=== PATIENT | female | born 1960 | race American Indian/Alaskan Native ===

== ENCOUNTER → 2017-11-29 10:45 | Outpatient (CLI) | payer OTHER, SELFPAY ==
[2017-11-29 12:30] LABS: Hemoglobin A1C% w Est Avg Glu 9.3 % (4.0-6.0)
[2017-11-29 12:44] LABS: Alanine Aminotransferase 43 IU/L (9-52); Albumin 4.1 g/dL (3.5-5.0); Albumin Globulin Ratio 1.1 (1.0-2.8); Alkaline Phosphatase 109 U/L (38-126); Aspartate Aminotransferase 30 IU/L (14-36); Bilirubin Total 0.6 mg/dL (0.2-1.3); Blood Urea Nitrogen 9 mg/dL (7-17); Calcium 9.8 mg/dL (8.4-10.2); Carbon Dioxide 24 mmol/L (22-32); Chloride 106 mmol/L (98-107); Cholesterol 131 mg/dL (140-199); Estimated Glomerular Filt Rate > 60.0 mL/min (>60); Globulin 3.6 g/dL (1.7-4.1); Glucose 149 mg/dL (70-100); HDL Cholesterol 44 mg/dL (40-60); HEMOLYSIS < 15 (0-50); LDL Cholesterol Calculated 57 mg/dL (<100); Potassium 4.9 mmol/L (3.4-5.1); Sodium 144 mmol/L (137-145); Total Protein 7.7 g/dL (6.3-8.2); Triglycerides 150 mg/dL (35-150)
== END ==
PROVIDERS: PCP Internal Medicine; Visit Provider Internal Medicine
DX: E11.9 Type 2 diabetes mellitus without complications (principal); I10 Essential (primary) hypertension; E78.5 Hyperlipidemia, unspecified
CPT/HCPCS: 36415; 80053; 80061; 83036

== ENCOUNTER → 2017-12-12 08:04 | Outpatient (CLI) | payer OTHER, SELFPAY ==
--- NOTE | 2017-12-12 | DI.MG.S_ITS ---
BILATERAL DIGITAL SCREENING MAMMOGRAM 3D/2D WITH CAD: 12/12/2017 CLINICAL: Routine screening. Comparison is made to exams dated: 11/13/2016 mammogram, 02/07/2015 mammogram, and 02/04/2014 mammogram - [facility]. There are scattered fibroglandular elements in both breasts. Current study was also evaluated with a Computer Aided Detection (CAD) system. No significant masses, calcifications, or other findings are seen in either breast. There has been no significant interval change. IMPRESSION: NEGATIVE There is no mammographic evidence of malignancy. A 1 year screening mammogram is recommended. This exam was interpreted at Station ID: [id number]. NOTE: For mammograms, a report in lay terms will be sent to the patient. Approximately 15% of breast malignancies will not be visualized mammographically. In the management of a palpable breast mass, a negative mammogram must not discourage biopsy of a clinically suspicious lesion. Electronically Signed By: Moiz fajardo/leesa:12/12/2017 11:42:44 letter sent: Normal Exam ACR BI-RADS Category 1: Negative 3341F
== END ==
PROVIDERS: PCP Internal Medicine; Visit Provider Internal Medicine
DX: Z12.31 Encounter for screening mammogram for malignant neoplasm of breast (principal)
CPT/HCPCS: 77063; 77067

== ENCOUNTER → 2019-02-10 13:23 | Outpatient (CLI) | payer OTHER, SELFPAY ==
[2019-02-10 14:21] LABS: Hemoglobin A1C% w Est Avg Glu 10.8 % (4.0-6.0)
[2019-02-10 14:44] LABS: Alanine Aminotransferase 31 IU/L (9-52); Albumin 4.2 g/dL (3.5-5.0); Albumin Globulin Ratio 1.2 (1.0-2.8); Alkaline Phosphatase 127 U/L (38-126); Aspartate Aminotransferase 30 IU/L (14-36); Bilirubin Total 0.5 mg/dL (0.2-1.3); Blood Urea Nitrogen 10 mg/dL (7-17); Calcium 9.8 mg/dL (8.4-10.2); Carbon Dioxide 22 mmol/L (22-32); Chloride 103 mmol/L (98-107); Estimated Glomerular Filt Rate > 60.0 mL/min (>60); Globulin 3.4 g/dL (1.7-4.1); Glucose 311 mg/dL (70-100); HEMOLYSIS 30 (0-50); Potassium 4.9 mmol/L (3.4-5.1); Sodium 137 mmol/L (137-145); Total Protein 7.6 g/dL (6.3-8.2)
[2019-02-10 14:48] LABS: Creatinine Urine Random 62.4 mg/dL
[2019-02-10 14:51] LABS: Microalbumi Creatinin Ratio Ur 68.9 ug/mg CR (<30); Microalbumin Urine Random 4.3 mg/dL (0-1.6)
[2019-02-10 15:29] LABS: Vitamin D 25 Hydroxy (D3) 36.7 ng/mL (30.0-100.0)
== END ==
PROVIDERS: Visit Provider Student in an Organized Health Care Education/Training Program
DX: E03.9 Hypothyroidism, unspecified (principal); E11.9 Type 2 diabetes mellitus without complications; I10 Essential (primary) hypertension; E55.9 Vitamin D deficiency, unspecified
CPT/HCPCS: 36415; 80053; 82043; 82306; 82570; 83036

== ENCOUNTER → 2019-03-05 08:27 | Outpatient (CLI) | payer OTHER, SELFPAY ==
--- NOTE | 2019-03-05 08:28 | DI.MG.S_ITS ---
BILATERAL DIGITAL SCREENING MAMMOGRAM 3D/2D WITH CAD: 03/05/2019 CLINICAL: Routine screening. Comparison is made to exams dated: 12/12/2017 mammogram, 11/13/2016 mammogram, and 02/07/2015 mammogram - [facility]. There are scattered fibroglandular elements in both breasts. Current study was also evaluated with a Computer Aided Detection (CAD) system. No significant masses, calcifications, or other findings are seen in either breast. There has been no significant interval change. IMPRESSION: NEGATIVE There is no mammographic evidence of malignancy. A 1 year screening mammogram is recommended. This exam was interpreted at Station ID: [id number]. NOTE: For mammograms, a report in lay terms will be sent to the patient. Approximately 15% of breast malignancies will not be visualized mammographically. In the management of a palpable breast mass, a negative mammogram must not discourage biopsy of a clinically suspicious lesion. Electronically Signed By: Sandie ortiz/leesa:03/05/2019 09:34:24 letter sent: Normal Exam ACR BI-RADS Category 1: Negative 3341F
== END ==
PROVIDERS: PCP Student in an Organized Health Care Education/Training Program; Visit Provider Student in an Organized Health Care Education/Training Program
DX: Z12.31 Encounter for screening mammogram for malignant neoplasm of breast (principal)
CPT/HCPCS: 77063; 77067

== ENCOUNTER → 2019-05-12 14:20 | Outpatient (CLI) | payer OTHER, SELFPAY ==
[2019-05-12 15:39] LABS: Hemoglobin A1C% w Est Avg Glu 10.6 % (4.0-6.0)
[2019-05-12 15:54] LABS: Creatinine Urine Random 17.7 mg/dL
[2019-05-12 15:59] LABS: Microalbumi Creatinin Ratio Ur 39.5 ug/mg CR (<30); Microalbumin Urine Random 0.7 mg/dL (0-1.6)
== END ==
PROVIDERS: PCP Student in an Organized Health Care Education/Training Program; Visit Provider Student in an Organized Health Care Education/Training Program
DX: E11.9 Type 2 diabetes mellitus without complications (principal)
CPT/HCPCS: 36415; 82043; 82570; 83036

== ENCOUNTER 2019-05-22 06:30 | Day surgery (SDC) | payer OTHER, SELFPAY ==
--- NOTE | 2019-05-22 | PATH_ITS ---
[facility] Accession Number: [id number] . 01 Material submitted: . PART A: colon - COLON POLYP @25 CM PART B: colon - COLON POLYP @15 CM PART C: rectum - RECTAL POLYP @5 CM X2 . 01 Clinical history: . SCREENING COLONOSCOPY . 02 Diagnosis: A. Colon, Polyp at 25 cm, Biopsy: Favor inflammatory polyp. Negative for dysplasia and malignancy. . B. Colon, Polyp at 15 cm, Biopsy: Inflammatory polyp. Negative for dysplasia and malignancy. . C. Rectum, Polyp at 5 cm x2, Biopsy: Tubular adenoma. Inflammatory polyp. MRV 05/25/2019 1021 Local . 02 Electronically signed: . Cynthia Coleman MD, Pathologist NPI- [id number] . 01 Gross description: . Part A: COLON POLYP @25 CM: Received in formalin is 1 fragment(s) of christianson, soft tissue measuring 0.7 x 0.5 x 0.2 cm which is inked, trisected and submitted entirely in 1 cassette(s) Part B: COLON POLYP @15 CM: Received in formalin is 1 fragment(s) of christianson, soft tissue measuring 0.3 x 0.2 x 0.2 cm submitted entirely in 1 cassette(s) Part C: RECTAL POLYP @5 CM X2: Received in formalin are multiple fragment(s) of christianson, soft tissue measuring 1.0 x 1.0 x 0.2 cm in aggregate submitted entirely in 1 cassette(s) /QBJ 05/22/20192057 Local . 02 Pathologist provided ICD-10: D12.8 . 02 CPT . 246697, 993675, 385621 Performed at: 01 [facility] [address], [place], [place] [id number] MD Oskar Cornell MD Phone: [phone] Performed at: [address] [id number] MD Cynthia Coleman MD Phone: [phone]
[2019-05-22 07:08] VITALS: BMI 27.3
[2019-05-22 07:12] VITALS: BP 142/79; PULSE 67; RESP 16; TEMP 36.4; O2SAT 99
[2019-05-22] MEDS: SODIUM CHLORIDE 0.9% 1,000 ML 200 ML IV (07:20)
--- NOTE | 2019-05-22 07:41 | PM.HP.1 ---
History of Present Illness History of Present Illness Date Patient Seen: 05/22/19 Time Patient Seen: 07:41 Chief complaint: [id number] SCREENING COLONOSCOPY Narrative: This is a 58-year-old woman with history of diabetes controlled on medication and hypothyroid, who is here for her 1st screening colonoscopy. She denies any history of melena, hematochezia or family history of colon polyps or colon cancers. ROS: Thirteen system review is negative other than as mentioned below and in HPI. PE: GENERAL: Well groomed and cooperative. Appears stated age. Answers questions promptly and appropriately. Vital signs noted. HENT: Normocephalic, atraumatic. Hearing intact. Oral mucosa is pink and moist. EYES: Conjunctiva pink, sclera white, no periorbital swelling. CARDIOVASCULAR: Regular rate. No pedal edema. RESPIRATORY: Non tachypneic, breathing comfortably on room air. GASTROINTESTINAL: Abdomen soft and non-distended GENITALURINARY: No flank tenderness. MUSCULOSKELETAL: Equal tone and mass bilaterally. SKIN: Warm, dry, soft, appropriate color for ethnicity. No other lesions, rashes, or wounds. NEURO: Alert and Oriented X 3. No gross sensory deficits, or cognitive issues. PSYCH: Appropriate affect and mood. Patient History Medical History Abnormal Pap smear of cervix (Resolved 1987) Acne (Chronic) Umanzor's palsy (Resolved 2000) History of one miscarriage (Resolved 1982) HPV (human papilloma virus) infection (Resolved 1987) Hyperlipidemia (Chronic 2010) Thyroid nodule (Resolved 1989) Surgical History Anesthesia (Resolved) History of bilateral tubal ligation (Resolved 1996) History of cervical biopsy (Resolved 1987) History of colposcopy (Resolved 1989) History of D&C (Resolved 1982) History of thyroid surgery (Resolved 1989) Status post colonoscopy Status post dilation and curettage (Inactive) Status post thyroid surgery (Inactive) Status post tubal ligation (Inactive) Family & Social History Family History Father Alcoholism Coronary artery disease Sister Age: 55 Type 1 diabetes Grandfather TB (tuberculosis) Mother Age: 78 Macular degeneration Diverticulosis History of kidney cancer History of nephrectomy Grandmother Heart disease Stroke Sister Diabetes mellitus Grandmother No problems noted. Social History: household members spouse Tobacco & Substance use: Smoking Status Current every day smoker alcohol intake never Meds Home Medications and Allergies Home Medications Medication Instructions Recorded Confirmed Type cholecalciferol (vitamin D3) 1,000 unit PO DAILY #0 01/02/12 05/22/19 History [Vitamin D3] ascorbic acid (vitamin C) 500 mg PO QDAY #0 09/27/17 05/22/19 History Test Strips- Glucocard #100 each 12/19/18 05/12/19 Rx aspirin 81 mg tablet,delayed 81 mg PO DAILY 02/10/19 05/22/19 History release levothyroxine 112 mcg tablet 112 mcg PO QDAY #90 tab 03/23/19 05/22/19 Rx metformin 1,000 mg tablet 1,000 mg PO BIDCC #180 tab 03/23/19 05/22/19 Rx atorvastatin 40 mg tablet 40 mg PO HS #90 tab 04/02/19 05/22/19 Rx losartan 100 mg tablet 100 mg PO QDAY #90 tab 05/12/19 05/22/19 Rx insulin aspart sliding scale #1 ea 05/15/19 Rx empagliflozin 10 mg PO DAILY 05/22/19 05/22/19 History glipizide 10 mg PO BID 05/22/19 05/22/19 History Allergies Allergy/AdvReac Type Severity Reaction Status Date / Time Penicillins Allergy Severe ANAPHYLAXIS Verified 05/22/19 07:03 Exam Vital Signs (past 8 hours): - 05/22/19 07:12 Temperature 97.5 F L Pulse Rate 67 Respiratory Rate 16 Blood Pressure 142/79 H Pulse Oximetry 99 Oxygen Delivery Method Room Air Assessment & Plan Assessment and plan (1) At average risk for colon cancer: Current visit: Yes Status: Acute (2) Colon cancer screening: Current visit: Yes Status: Acute (3) Essential hypertension, benign: Current visit: No Status: Acute (4) Type 2 diabetes mellitus: Current visit: No Status: Chronic (5) Current smoker: Current visit: No Status: None Assessment & Plan narrative: Risk and benefit of screening colonoscopy and possible polypectomy were discussed with the patient who desires to proceed with her colonoscopy procedure. Risk of bleeding, perforation, need for additional procedures were discussed. Time Spent With Patient Time with patient: 15-24 minutes Quality VTE Deep Vein Thrombosis/Pulmonary Embolism Present on Admission: No
--- NOTE | 2019-05-22 08:25 | PM.OP.ENDO ---
Operative Date/Time/Diagnoses Date of procedure: 05/22/19 Time of procedure: 08:25 Pre-op diagnosis: Average risk for colon cancer Post-op diagnosis: other (Multiple polyps, diverticulosis) Procedure & Clinicians Study performed: Colonoscopy, polypectomy x4 with hot snare and cold forceps Same procedure as scheduled: Yes Indications: Patient here for 1st screening colonoscopy Surgeon: Estella Barnett Procedure Notes SCOAP/Timeout: Performed Procedure in detail: The patient was brought to the room and placed in left lateral decubitus position with all bony prominences padded. A time-out was performed and then the patient was given procedural sedation starting with 3 mg of Versed and 100 mcg of fentanyl. An additional 50 micro g of fentanyl were given during the procedure. Vitals were monitored throughout the procedure and remained stable. Once adequately sedated the procedure was begun. A rectal exam was performed revealing no abnormalities. The colonoscope was then introduced to the rectum and advanced to the cecum in the usual fashion. The cecum was identified by the appendiceal orifice, the mucosal try fold, and the intubation of the ileocecal valve. The scope was then retracted while rotating side to side and examining each mucosal fold. For polyps were found and completely removed. A 1 cm pedunculated polyp at 25 cm in the rectosigmoid colon was removed with hot snare, a small flat polyp at 15 cm was removed with cold forceps, into 1-2 cm rectal polyps were removed with hot snare at 5 cm just above the anal verge. Moderate diverticular were seen throughout the descending and sigmoid colon. No signs of active diverticulitis At the conclusion procedure retroflexion was performed and small grade 1-2 internal hemorrhoids without stigmata of bleeding were seen. The scope was then withdrawn from the rectum the procedure was concluded. The patient tolerated the procedure well was transferred to the PACU in stable condition. Scope withdrawal time: 20 Sedation minutes: 29 Findings: diverticulosis and polyp Specimen(s): other (4 polyps) Complications: none Impression: Multiple medium to large-sized polyps Post-procedure Recommendations: Colonscopy in 1 year (Depending on pathology results) Disposition: PACU
[2019-05-22] MEDS: MIDAZOLAM 5 MG/5 ML VIAL IV (08:26)
[2019-05-22] MEDS: fentaNYL 250 MCG/5 ML INJ IV (08:27)
[2019-05-22 08:30] VITALS: BP 110/67; PULSE 72; RESP 16; TEMP 37.2; O2SAT 99
[2019-05-22 08:34] VITALS: BP 118/64; PULSE 65; RESP 16; O2SAT 97
[2019-05-22 08:38] VITALS: BP 127/69; PULSE 67; RESP 16; O2SAT 99
[2019-05-22 08:44] VITALS: BP 142/81; PULSE 69; RESP 11; TEMP 36.4; O2SAT 99
[2019-05-22 08:54] VITALS: BP 137/77; PULSE 68; RESP 15; TEMP 36.3; O2SAT 97
== END 2019-05-22 09:24 | disposition home or self-care (01) ==
PROVIDERS: PCP Student in an Organized Health Care Education/Training Program; Visit Provider Surgery
PROC: 0DJD8ZZ Inspection of Lower Intestinal Tract, Via Natural or Artificial Opening Endoscopic (ICD-10-PCS; CPT 45378; principal; 2019-05-22 07:45)
DX: Z12.11 Encounter for screening for malignant neoplasm of colon (principal); I10 Essential (primary) hypertension; E11.9 Type 2 diabetes mellitus without complications; Z79.4 Long term (current) use of insulin; F17.200 Nicotine dependence, unspecified, uncomplicated; E03.9 Hypothyroidism, unspecified; K57.30 Diverticulosis of large intestine without perforation or abscess without bleeding; D12.8 Benign neoplasm of rectum
CPT/HCPCS: 45385; 45380; 99152; 99153; J2250; J3010

== ENCOUNTER → 2019-08-14 11:46 | Outpatient (CLI) | payer OTHER, SELFPAY ==
[2019-08-14 12:50] LABS: Hemoglobin A1C% w Est Avg Glu 9.7 % (4.0-6.0)
== END ==
PROVIDERS: PCP Student in an Organized Health Care Education/Training Program; Referring Provider Student in an Organized Health Care Education/Training Program; Visit Provider Student in an Organized Health Care Education/Training Program
DX: E11.9 Type 2 diabetes mellitus without complications (principal)
CPT/HCPCS: 36415; 83036

== ENCOUNTER → 2019-11-19 14:05 | Outpatient (CLI) | payer OTHER, SELFPAY ==
[2019-11-19 14:42] LABS: Hemoglobin A1C% w Est Avg Glu 9.4 % (4.0-6.0)
== END ==
PROVIDERS: PCP Student in an Organized Health Care Education/Training Program; Referring Provider Student in an Organized Health Care Education/Training Program; Visit Provider Student in an Organized Health Care Education/Training Program
DX: E11.9 Type 2 diabetes mellitus without complications (principal)
CPT/HCPCS: 36415; 83036

== ENCOUNTER → 2020-03-01 10:46 | Outpatient (CLI) | payer OTHER, SELFPAY ==
[2020-03-01 11:58] LABS: Hemoglobin A1C% w Est Avg Glu 8.7 % (4.0-6.0)
[2020-03-01 12:05] LABS: Creatinine Urine Random 114.7 mg/dL
[2020-03-01 12:10] LABS: Alanine Aminotransferase 30 IU/L (<35); Albumin 4.2 g/dL (3.5-5.0); Albumin Globulin Ratio 1.3 (1.0-2.8); Alkaline Phosphatase 120 U/L (38-126); Aspartate Aminotransferase 25 IU/L (14-36); BUN Creatinine Ratio 24.1 (6-22); Bilirubin Total 0.5 mg/dL (0.2-1.3); Blood Urea Nitrogen 13 mg/dL (7-17); Calcium 10.1 mg/dL (8.4-10.2); Carbon Dioxide 25 mmol/L (22-32); Chloride 107 mmol/L (98-107); Estimated Glomerular Filt Rate > 60.0 mL/min (>60); Globulin 3.3 g/dL (1.7-4.1); Glucose 126 mg/dL (80-110); HEMOLYSIS < 15 (0-50); Microalbumin Urine Random 3.1 mg/dL (0-1.6); Potassium 5.1 mmol/L (3.4-5.1); Sodium 142 mmol/L (137-145); Total Protein 7.5 g/dL (6.3-8.2)
== END ==
PROVIDERS: PCP Student in an Organized Health Care Education/Training Program; Referring Provider Student in an Organized Health Care Education/Training Program; Visit Provider Student in an Organized Health Care Education/Training Program
DX: E11.29 Type 2 diabetes mellitus with other diabetic kidney complication (principal); E11.9 Type 2 diabetes mellitus without complications; E78.5 Hyperlipidemia, unspecified; I10 Essential (primary) hypertension; R80.9 Proteinuria, unspecified
CPT/HCPCS: 36415; 80053; 82043; 82570; 83036

== ENCOUNTER → 2020-04-12 17:24 | Outpatient (CLI) | payer OTHER, SELFPAY ==
--- NOTE | 2020-04-12 | DI.MG.S_ITS ---
BILATERAL DIGITAL SCREENING MAMMOGRAM 3D/2D WITH CAD: 04/12/2020 CLINICAL: Routine screening. Comparison is made to exams dated: 03/05/2019 mammogram, 12/12/2017 mammogram, 11/13/2016 mammogram, 02/07/2015 mammogram, and 02/04/2014 mammogram - [facility]. There are scattered fibroglandular elements in both breasts. Current study was also evaluated with a Computer Aided Detection (CAD) system. No significant masses, calcifications, or other findings are seen in either breast. There has been no significant interval change. IMPRESSION: NEGATIVE There is no mammographic evidence of malignancy. A 1 year screening mammogram is recommended. This exam was interpreted at Station ID: [id number]. NOTE: For mammograms, a report in lay terms will be sent to the patient. Approximately 15% of breast malignancies will not be visualized mammographically. In the management of a palpable breast mass, a negative mammogram must not discourage biopsy of a clinically suspicious lesion. Electronically Signed By: Didier celeste/leesa:04/13/2020 08:24:04 letter sent: Normal Exam ACR BI-RADS Category 1: Negative 3341F
== END ==
PROVIDERS: PCP Student in an Organized Health Care Education/Training Program; Referring Provider Student in an Organized Health Care Education/Training Program; Visit Provider Student in an Organized Health Care Education/Training Program
DX: Z12.31 Encounter for screening mammogram for malignant neoplasm of breast (principal)
CPT/HCPCS: 77063; 77067

== ENCOUNTER → 2020-06-15 11:11 | Outpatient (CLI) | payer OTHER, SELFPAY ==
[2020-06-15 12:22] LABS: Hemoglobin A1C% w Est Avg Glu 8.3 % (4.0-6.0)
== END ==
PROVIDERS: PCP Student in an Organized Health Care Education/Training Program; Referring Provider Student in an Organized Health Care Education/Training Program; Visit Provider Student in an Organized Health Care Education/Training Program
DX: E11.9 Type 2 diabetes mellitus without complications (principal)
CPT/HCPCS: 36415; 83036

== ENCOUNTER → 2021-04-27 11:31 | Outpatient (CLI) | payer OTHER, SELFPAY ==
[2021-04-27 12:20] LABS: Hemoglobin A1C% w Est Avg Glu 8.2 % (4.0-6.0)
[2021-04-27 12:44] LABS: BUN Creatinine Ratio 22.6 (6-22); Blood Urea Nitrogen 14 mg/dL (7-17); Calcium 10.2 mg/dL (8.4-10.2); Carbon Dioxide 23 mmol/L (22-32); Chloride 107 mmol/L (98-107); Cholesterol 149 mg/dL (140-199); Estimated Glomerular Filt Rate > 60.0 mL/min (>60); Glucose 95 mg/dL (80-110); HDL Cholesterol 56 mg/dL (40-60); HEMOLYSIS < 15 (0-50); LDL Cholesterol Calculated 48 mg/dL (<100); Potassium 4.6 mmol/L (3.4-5.1); Sodium 140 mmol/L (137-145); Triglycerides 226 mg/dL (35-150)
[2021-04-27 17:13] LABS: Microalbumin Urine Random 2.7 mg/dL (0-1.6)
[2021-04-27 17:16] LABS: Creatinine Urine Random 112.1 mg/dL
== END ==
PROVIDERS: PCP Student in an Organized Health Care Education/Training Program; Referring Provider Student in an Organized Health Care Education/Training Program; Visit Provider Student in an Organized Health Care Education/Training Program
DX: E11.9 Type 2 diabetes mellitus without complications (principal); I10 Essential (primary) hypertension; E78.5 Hyperlipidemia, unspecified; E03.9 Hypothyroidism, unspecified
CPT/HCPCS: 36415; 80048; 80061; 82043; 82570; 83036; 84443

== ENCOUNTER → 2021-05-30 16:19 | Outpatient (CLI) | payer OTHER, SELFPAY ==
--- NOTE | 2021-05-30 16:21 | DI.MG.S_ITS ---
BILATERAL DIGITAL SCREENING MAMMOGRAM 3D/2D WITH CAD: 05/30/2021 CLINICAL: Routine screening. Family history of breast cancer. Comparison is made to exams dated: 04/12/2020 mammogram, 03/05/2019 mammogram, and 12/12/2017 mammogram - [facility]. There are scattered fibroglandular elements in both breasts. Current study was also evaluated with a Computer Aided Detection (CAD) system. There is an oval low density focal asymmetry with an indistinct and circumscribed margin in the right breast middle depth central to the nipple seen on the craniocaudal view only. No other significant masses, calcifications, or other findings are seen in either breast. IMPRESSION: INCOMPLETE: NEEDS ADDITIONAL IMAGING EVALUATION The oval low density focal asymmetry in the right breast is indeterminate. Mediolateral and spot compression views as well as additional views with possible ultrasound are recommended. This exam was interpreted at Station ID: [id number]. NOTE: For mammograms, a report in lay terms will be sent to the patient. Approximately 15% of breast malignancies will not be visualized mammographically. In the management of a palpable breast mass, a negative mammogram must not discourage biopsy of a clinically suspicious lesion. Electronically Signed By: Oskar power/leesa:05/30/2021 16:58:25 letter sent: Additional Imaging Needed ACR BI-RADS Category 0: Incomplete 3340F
== END ==
PROVIDERS: PCP Student in an Organized Health Care Education/Training Program; Referring Provider Student in an Organized Health Care Education/Training Program; Visit Provider Student in an Organized Health Care Education/Training Program
DX: Z12.31 Encounter for screening mammogram for malignant neoplasm of breast (principal); Z80.3 Family history of malignant neoplasm of breast
CPT/HCPCS: 77063; 77067

== ENCOUNTER → 2021-06-26 14:46 | Outpatient (CLI) | payer OTHER, SELFPAY ==
--- NOTE | 2021-06-26 | DI.MG.S_ITS ---
UNILATERAL RIGHT DIGITAL DIAGNOSTIC MAMMOGRAM 3D/2D WITH ADDITIONAL VIEWS: 06/26/2021 CLINICAL: Additional evaluation requested from prior study. Comparison is made to exams dated: 05/30/2021 mammogram, 04/12/2020 mammogram, and 03/05/2019 mammogram - [facility]. There are scattered fibroglandular elements in right breast. There is a stable oval low density focal asymmetry with an indistinct and circumscribed margin in the right breast anterior depth central to the nipple seen on the craniocaudal view only. No other significant masses or calcifications are seen in the breast. IMPRESSION: INCOMPLETE: NEEDS ADDITIONAL IMAGING EVALUATION The stable oval low density focal asymmetry in the right breast is indeterminate. An ultrasound is recommended. This exam was interpreted at Station ID: [id number]. NOTE: For mammograms, a report in lay terms will be sent to the patient. Approximately 15% of breast malignancies will not be visualized mammographically. In the management of a palpable breast mass, a negative mammogram must not discourage biopsy of a clinically suspicious lesion. Electronically Signed By: Kal Duarte M.D., jr/leesa:06/26/2021 15:16:30 ACR BI-RADS Category 0: Incomplete 3340F
--- NOTE | 2021-06-26 | DI.US.S_ITS ---
ULTRASOUND OF RIGHT BREAST: 06/26/2021 CLINICAL: Patient returns today to evaluate an asymmetry in the right breast. Comparison is made to exams dated: 06/26/2021 mammogram, 05/30/2021 mammogram, 04/12/2020 mammogram, 03/05/2019 mammogram, 12/12/2017 mammogram, and 11/13/2016 mammogram - [facility]. Color flow and real-time ultrasound of the right breast were performed. Sloan scale images of the real-time examination were reviewed. There is a benign complicated cyst in the right breast at 6 o'clock anterior depth. IMPRESSION: BENIGN There is no sonographic evidence of malignancy. The complicated cyst in the right breast is benign. A 1 year screening mammogram is recommended. This exam was interpreted at Station ID: [id number]. Electronically Signed By: Kal Duarte M.D., jr/leesa:06/26/2021 16:03:25 letter sent: Normal Exam Ultrasound BI-RADS: 2 Benign
== END ==
PROVIDERS: PCP Student in an Organized Health Care Education/Training Program; Referring Provider Student in an Organized Health Care Education/Training Program; Visit Provider Student in an Organized Health Care Education/Training Program
DX: R92.8 Other abnormal and inconclusive findings on diagnostic imaging of breast (principal); N64.89 Other specified disorders of breast; N60.01 Solitary cyst of right breast
CPT/HCPCS: 76642; 77065; G0279

== ENCOUNTER → 2021-08-10 11:22 | Outpatient (CLI) | payer OTHER, SELFPAY ==
[2021-08-10 12:58] LABS: Hemoglobin A1C% w Est Avg Glu 8.5 % (4.0-6.0)
[2021-08-10 13:18] LABS: BUN Creatinine Ratio 16.4 (6-22); Blood Urea Nitrogen 10 mg/dL (7-17); Estimated Glomerular Filt Rate > 60.0 mL/min (>60)
== END ==
PROVIDERS: PCP Student in an Organized Health Care Education/Training Program; Referring Provider Student in an Organized Health Care Education/Training Program; Visit Provider Student in an Organized Health Care Education/Training Program
DX: E11.29 Type 2 diabetes mellitus with other diabetic kidney complication (principal); R80.9 Proteinuria, unspecified; Z79.4 Long term (current) use of insulin
CPT/HCPCS: 36415; 82565; 83036; 84520

== ENCOUNTER → 2021-11-17 11:17 | Outpatient (CLI) | payer OTHER, SELFPAY ==
[2021-11-17 12:24] LABS: Hemoglobin A1C% w Est Avg Glu 8.8 % (4.0-6.0)
[2021-11-17 12:27] LABS: BUN Creatinine Ratio 18.5 (6-22); Blood Urea Nitrogen 12 mg/dL (7-17); Estimated Glomerular Filt Rate > 60 mL/min (>60)
== END ==
PROVIDERS: PCP Student in an Organized Health Care Education/Training Program; Referring Provider Student in an Organized Health Care Education/Training Program; Visit Provider Student in an Organized Health Care Education/Training Program
DX: E11.29 Type 2 diabetes mellitus with other diabetic kidney complication (principal); R80.9 Proteinuria, unspecified; Z79.4 Long term (current) use of insulin
CPT/HCPCS: 36415; 82565; 83036; 84520

== ENCOUNTER → 2022-02-06 16:17 | Outpatient (CLI) | payer OTHER, SELFPAY ==
[2022-02-06 17:11] LABS: Add Manual Diff / Slide Review NO; Basophils Absolute Auto 100 /uL (0-100); Eosinophils Absolute Auto 300 /uL (0-450); Eosinophils Percent Auto 1.8 % (2-4); Hematocrit 41.3 % (36-46); Hemoglobin 13.6 g/dL (12.0-16.0); Lymphocytes Absolute Auto 3100 /uL (1100-4500); Lymphocytes Percent Auto 22.1 % (25-40); Mean Corpuscular Hemoglobin 26.8 PG (26-34); Mean Corpuscular Volume 81.1 fL (80-100); Monocytes Absolute Auto 900 /uL (0-900); Monocytes Percent Auto 6.5 % (3-14); Neutrophils Absolute Auto 9500 /uL (1500-7000); Neutrophils Percent Auto 68.6 % (50-75); Platelet Count 320 X10^3/uL (150-400); Red Blood Cell Count 5.09 X10^6/uL (4.0-5.2); Red Cell Distribution Width 16.6 % (11.6-14.8); White Blood Cell Count 13.9 X10^3/uL (4.5-11.0)
[2022-02-06 17:31] LABS: Hemoglobin A1C% w Est Avg Glu 8.1 % (4.0-6.0)
[2022-02-06 17:52] LABS: Alanine Aminotransferase 23 IU/L (<35); Alkaline Phosphatase 95 U/L (38-126); Aspartate Aminotransferase 41 IU/L (14-36); BUN Creatinine Ratio 17.6 (6-22); Bilirubin Total 0.6 mg/dL (0.2-1.3); Blood Urea Nitrogen 12 mg/dL (7-17); Calcium 8.6 mg/dL (8.4-10.2); Carbon Dioxide 24 mmol/L (22-32); Chloride 110 mmol/L (98-107); Estimated Glomerular Filt Rate > 60 mL/min (>60); Glucose 173 mg/dL (80-110); HEMOLYSIS 79 (0-50); Potassium 4.4 mmol/L (3.4-5.1); Sodium 141 mmol/L (137-145)
== END ==
PROVIDERS: PCP Student in an Organized Health Care Education/Training Program; Referring Provider Student in an Organized Health Care Education/Training Program; Visit Provider Student in an Organized Health Care Education/Training Program
DX: E11.29 Type 2 diabetes mellitus with other diabetic kidney complication (principal); I10 Essential (primary) hypertension; R80.9 Proteinuria, unspecified; Z79.4 Long term (current) use of insulin; Z79.899 Other long term (current) drug therapy
CPT/HCPCS: 36415; 80053; 83036; 85025

== ENCOUNTER → 2022-05-24 09:07 | Outpatient (CLI) | payer OTHER, SELFPAY ==
[2022-05-24 10:20] LABS: Hemoglobin A1C% w Est Avg Glu 8.4 % (4.0-6.0)
[2022-05-24 10:25] LABS: Creatinine Urine Random 256.9 mg/dL
[2022-05-24 10:33] LABS: Microalbumi Creatinin Ratio Ur 22.1 ug/mg CR (<30); Microalbumin Urine Random 5.7 mg/dL (0-1.6)
[2022-05-24 11:15] LABS: Cholesterol 126 mg/dL (140-199); HDL Cholesterol 49 mg/dL (40-60); LDL Cholesterol Calculated 46 mg/dL (<100); Triglycerides 153 mg/dL (35-150)
== END ==
PROVIDERS: PCP Student in an Organized Health Care Education/Training Program; Referring Provider Student in an Organized Health Care Education/Training Program; Visit Provider Student in an Organized Health Care Education/Training Program
DX: E11.29 Type 2 diabetes mellitus with other diabetic kidney complication (principal); E11.69 Type 2 diabetes mellitus with other specified complication; E11.9 Type 2 diabetes mellitus without complications; E78.5 Hyperlipidemia, unspecified; I10 Essential (primary) hypertension; R80.9 Proteinuria, unspecified
CPT/HCPCS: 36415; 80061; 82043; 82570; 83036

== ENCOUNTER → 2022-07-06 14:37 | Outpatient (CLI) | payer OTHER, SELFPAY ==
--- NOTE | 2022-07-06 | DI.MG.S_ITS ---
BILATERAL DIGITAL SCREENING MAMMOGRAM 3D/2D WITH CAD: 07/06/2022 CLINICAL: Routine screening. Family history of breast cancer. Comparison is made to exams dated: 06/26/2021 mammogram, 05/30/2021 mammogram, and 04/12/2020 mammogram - [facility]. There are scattered areas of fibroglandular density in both breasts (category b / 25%-50% glandular tissue). Current study was also evaluated with a Computer Aided Detection (CAD) system. No significant masses, calcifications, or other findings are seen in either breast. There has been no significant interval change. IMPRESSION: NEGATIVE There is no mammographic evidence of malignancy. A 1 year screening mammogram is recommended. Based on the Tyrer Cuzick model (a risk assessment model) the patient's lifetime risk is 7.8% and her 10 year risk is 3.5%. According to the ACR, ACS, and NCCN guidelines, an annual breast MRI exam along with mammogram is recommended if the patient's lifetime risk is 20% or greater. This exam was interpreted at Station ID: [id number]. NOTE: For mammograms, a report in lay terms will be sent to the patient. Approximately 15% of breast malignancies will not be visualized mammographically. In the management of a palpable breast mass, a negative mammogram must not discourage biopsy of a clinically suspicious lesion. Electronically Signed By: Shaka romero/leesa:07/06/2022 15:06:28 letter sent: Normal Exam ACR BI-RADS Category 1: Negative 3341F
== END ==
PROVIDERS: PCP Student in an Organized Health Care Education/Training Program; Referring Provider Student in an Organized Health Care Education/Training Program; Visit Provider Student in an Organized Health Care Education/Training Program
DX: Z12.31 Encounter for screening mammogram for malignant neoplasm of breast (principal); Z80.3 Family history of malignant neoplasm of breast
CPT/HCPCS: 77063; 77067

== ENCOUNTER 2022-08-14 08:04 | Day surgery (SDC) | payer OTHER, SELFPAY ==
[2022-08-10 11:37] VITALS: BMI 32.9
[2022-08-14] VITALS (7 sets, daily range): BP systolic 107–150; BP diastolic 55–116; PULSE 68–107; RESP 11–22; TEMP 36.1–36.6; O2SAT 94–99; BMI 32.9
--- NOTE | 2022-08-14 | PATH_ITS ---
[facility] Accession Number: [id number] No. of containers..01 Tissue . 01 Material submitted: . gluteal cleft - RIGHT GLUTEAL CYST . 01 Clinical history: . RIGHT EXCISIONAL BX OF GLUTEAL CYST . 01 Diagnosis: Right Gluteal, Excision: Dermal defect lined by granulation tissue with surrounding scarring and acute and chronic inflammation. . Note: The findings are nonspecific, but could represent, in the proper clinical setting, the site of a previously ruptured/treated cyst or abscess. Clinicopathological correlation is advised for definitive diagnosis. MRV 08/17/2022 1727 Local . 01 Electronically signed: . Chioma Samuels MD, Dermatopathologist NPI- [id number] . 01 Gross description: . The specimen is received in formalin labeled with the patient's name, , and right gluteal cyst consists of two unoriented ellipses of skin. The first is incised from one tip to another with no designation per the requisition, and measures 3.7 x 1.8 cm and is excised to a depth of 3.4 cm. The margin is inked blue. The fragment is serially sectioned. The second ellipse measures 5.5 x 1.2 cm, is excised to a depth of 0.2 cm, and the margin is inked green. Sectioning reveals a possible cystic structure filled with brown grumous material measuring 0.5 cm in greatest dimension. Test Desk Operator sections are submitted in cassettes A1-A3. ([id number]) /MRV 08/15/2022 1436 Local . 01 Pathologist provided ICD-10: L02.31 . 01 CPT . 129127 Specimen Comment: A courtesy copy of this report has been sent to [phone] Performed at: 01 [facility] [address], [place], [place] [id number] MD Oskar Cornell MD Phone: [phone]
--- NOTE | 2022-08-14 08:47 | PM.PREOP ---
Pre-operative Note COVID-19 COVID-19 status: Not tested Interval Note History & Physical reviewed/Exam performed by Physician: Yes Changes to H&P: No ASA Class (for procedural sedation): II
[2022-08-14] MEDS: LACTATED RINGERS 1,000 ML 42 ML IV ×2 (09:00→10:08)
[2022-08-14] MEDS: CEFAZOLIN 2 GM/100 ML PREMIX 100 ML IV (09:17)
--- NOTE | 2022-08-14 09:39 | SUR.OPER ---
Lateral on a britt bag, head on pillow, gel axillary roll in place, bottom leg bent with gel pad under knee to foot, upper leg straight and supported with pillows. Upper arm supported by pillows and secured over bottom arm to padded arm board. Safety belt at hip, tape over blanket lower legs. pt positioned per direction and supervision of Dr Ferreira.
[2022-08-14] MEDS: LIDOCAINE 1% W/EPI 20 ML INJ (09:45)
--- NOTE | 2022-08-14 10:32 | PM.OP.1 ---
Operative Date/Time/Diagnoses Date of procedure: 08/14/22 Time of procedure: 10:32 Pre-op diagnosis: Excisional biopsy of right gluteal epidermal cyst Post-op diagnosis: same Procedure & Clinicians Procedure: Excisional biopsy of right gluteal epidermal inclusion cyst Same procedure as scheduled: Yes Surgeon: Mike Ferreira Anesthesia Type: General Operative Notes Procedure in detail: The patient was brought to the operating room and placed on the table in the supine position. General anesthesia was induced. The patient was then positioned in the left lateral decubitus position. The right buttock was prepped and draped in the usual fashion and a time-out was performed. We made a 6 cm elliptical incision over the cyst and dissected down to the cyst capsule. Because the skin was so thin right over the cyst we had to take additional skin to get back to normal dermis. The cyst was entirely removed without rupturing it. We used cautery to achieve hemostasis. We irrigated the cavity and injected additional local. We then closed the skin in layers using multiple interrupted 3-0 Vicryl dermal sutures followed by a running 4 Monocryl subcuticular closure. We then applied Steri-Strips and a Telfa dressing. EBL: 10 mL Specimen: Right gluteal epidermal cyst Post-operative Condition: stable Disposition: PACU
--- NOTE | 2022-08-14 11:01 | SUR.PHASEI ---
Dr. Pelletier notified of rhonchi in patient's lungs, no new orders.
--- NOTE | 2022-08-14 11:20 | SUR.PHASEII ---
1120: Pt A&Ox4, denies any distress, VSS, dressing has small amt drainage on it but intact. Discharge instructions reviewed with pt and time allowed for questions. IV DC'd intact, extra dressing supplies given. Pt left unit in stable condition via w/c to ER entrance where son will transport pt home.
== END 2022-08-14 11:24 | disposition home or self-care (01) ==
PROVIDERS: PCP Student in an Organized Health Care Education/Training Program; Referring Provider Surgery; Visit Provider Surgery
PROC: (CPT 11406; principal; 2022-08-14 09:15)
DX: L02.31 Cutaneous abscess of buttock (principal); L72.0 Epidermal cyst
CPT/HCPCS: 11406; 12032; J0330; J0690; J1100; J2405; J2704; J3010

== ENCOUNTER → 2022-09-14 08:45 | Outpatient (CLI) | payer OTHER, SELFPAY ==
[2022-09-15 06:09] LABS: x Labcorp Estim. Avg Glu (eAG) 171 mg/dL (.); x Labcorp Hemoglobin A1c 7.6 % (4.8-5.6)
== END ==
PROVIDERS: PCP Student in an Organized Health Care Education/Training Program; Referring Provider Student in an Organized Health Care Education/Training Program; Visit Provider Student in an Organized Health Care Education/Training Program
DX: E11.9 Type 2 diabetes mellitus without complications (principal)
CPT/HCPCS: 83036

== ENCOUNTER → 2023-02-21 08:52 | Outpatient (CLI) | payer OTHER, SELFPAY ==
[2023-02-21 09:40] LABS: Appearance Urine UA CLEAR; Bilirubin Urine UA NEGATIVE (NEGATIVE); Color Urine UA YELLOW; Glucose Urine UA NEGATIVE (Negative); Ketones Urine UA TRACE (NEGATIVE); Leukocyte Esterase Urine UA TRACE (NEGATIVE); Nitrite Urine UA NEGATIVE (Negative); Occult Blood Urine UA NEGATIVE (Negative); Protein Urine UA NEGATIVE (Negative); Specific Gravity Urine UA 1.025 (1.000-1.035)
[2023-02-21 09:46] LABS: pH Urine UA 5.5 (4.5-8.0)
[2023-02-21 10:14] LABS: Bacteria Urine Moderate (10-30); Culture Indicated Urine Specimen Cultured; RBC Urine None Seen (0-5/HPF); Squamous Epithelial Cell Urine 1-5 /HPF (0-5/HPF); WBC Urine 1-5/HPF (0-5/HPF)
[2023-02-21 10:44] LABS: Add Manual Diff / Slide Review NO; Basophils Absolute Auto 100 /uL (0-100); Basophils Percent Auto 0.5 % (0-2); Eosinophils Absolute Auto 500 /uL (0-450); Eosinophils Percent Auto 3.6 % (2-4); Hematocrit 40.5 % (36-46); Hemoglobin 13.4 g/dL (12.0-16.0); Lymphocytes Absolute Auto 3600 /uL (1100-4500); Lymphocytes Percent Auto 27.7 % (25-40); Mean Corpuscular HGB Conc 33.1 % (30-36); Mean Corpuscular Hemoglobin 26.6 PG (26-34); Mean Corpuscular Volume 80.4 fL (80-100); Monocytes Absolute Auto 800 /uL (0-900); Monocytes Percent Auto 5.9 % (3-14); Neutrophils Absolute Auto 8000 /uL (1500-7000); Neutrophils Percent Auto 62.3 % (50-75); Platelet Count 387 X10^3/uL (150-400); Red Blood Cell Count 5.03 X10^6/uL (4.0-5.2); Red Cell Distribution Width 16.9 % (11.6-14.8); White Blood Cell Count 12.9 X10^3/uL (4.5-11.0)
[2023-02-21 10:46] LABS: Hemoglobin A1C% w Est Avg Glu 7.8 % (4.0-6.0)
[2023-02-21 10:47] LABS: Alanine Aminotransferase 30 IU/L (<35); Albumin Globulin Ratio 1.2 (1.0-2.8); Alkaline Phosphatase 107 U/L (38-126); Aspartate Aminotransferase 25 IU/L (14-36); BUN Creatinine Ratio 20.6 (6-22); Bilirubin Total 0.3 mg/dL (0.2-1.3); Blood Urea Nitrogen 13 mg/dL (7-17); Calcium 9.4 mg/dL (8.4-10.2); Carbon Dioxide 20 mmol/L (22-32); Chloride 105 mmol/L (98-107); Cholesterol 127 mg/dL (140-199); Estimated Glomerular Filt Rate > 60 mL/min (>60); Globulin 3.4 g/dL (1.7-4.1); Glucose 189 mg/dL (80-110); HDL Cholesterol 49 mg/dL (40-60); HEMOLYSIS < 15 (0-50); LDL Cholesterol Calculated 48 mg/dL (<100); Potassium 4.8 mmol/L (3.4-5.1); Sodium 136 mmol/L (137-145); Total Protein 7.4 g/dL (6.3-8.2); Triglycerides 152 mg/dL (35-150)
[2023-02-21 11:27] LABS: TSH w/ Reflex to FT4 1.73 uIU/mL (0.47-4.68)
[2023-02-21 16:39] LABS: Hep C Virus Ab w/Reflex Quant NEGATIVE s/c (NEGATIVE)
== END ==
PROVIDERS: PCP Family Medicine; Referring Provider Family Medicine; Visit Provider Family Medicine
DX: E03.9 Hypothyroidism, unspecified (principal); E11.29 Type 2 diabetes mellitus with other diabetic kidney complication; E11.69 Type 2 diabetes mellitus with other specified complication; E11.9 Type 2 diabetes mellitus without complications; E78.5 Hyperlipidemia, unspecified; R80.9 Proteinuria, unspecified; I10 Essential (primary) hypertension; Z79.4 Long term (current) use of insulin
CPT/HCPCS: 36415; 80053; 80061; 81001; 83036; 84443; 85025; 86803; 87086

== ENCOUNTER → 2023-07-08 08:20 | Outpatient (CLI) | payer OTHER, SELFPAY ==
--- NOTE | 2023-07-08 | DI.MG.S_ITS ---
BILATERAL DIGITAL SCREENING MAMMOGRAM 3D/2D WITH CAD: 07/08/2023 CLINICAL: Routine screening. Family history of breast cancer. Comparison is made to exams dated: 07/06/2022 mammogram, 05/30/2021 mammogram, and 04/12/2020 mammogram - [facility]. There are scattered areas of fibroglandular density in both breasts (category b / 25%-50% glandular tissue). Current study was also evaluated with a Computer Aided Detection (CAD) system. There are benign calcifications in both breasts. There is a focal asymmetry in the right breast central to the nipple middle depth. No other significant masses, calcifications, or other findings are seen in either breast. IMPRESSION: INCOMPLETE: NEEDS ADDITIONAL IMAGING EVALUATION The focal asymmetry in the right breast is indeterminate. Additional views with possible ultrasound are recommended. Based on the Tyrer Cuzick model (a risk assessment model) the patient's lifetime risk is 7.9% and her 10 year risk is 3.7%. According to the ACR, ACS, and NCCN guidelines, an annual breast MRI exam along with mammogram is recommended if the patient's lifetime risk is 20% or greater. This exam was interpreted at Station ID: [id number]. NOTE: For mammograms, a report in lay terms will be sent to the patient. Approximately 15% of breast malignancies will not be visualized mammographically. In the management of a palpable breast mass, a negative mammogram must not discourage biopsy of a clinically suspicious lesion. Electronically Signed By: Sandie ortiz/leesa:07/08/2023 13:38:20 letter sent: Additional Imaging Needed ACR BI-RADS Category 0: Incomplete 3340F
== END ==
LOC: MAMMO 08:20
PROVIDERS: PCP Family Medicine; Referring Provider Family Medicine; Visit Provider Family Medicine
DX: Z12.31 Encounter for screening mammogram for malignant neoplasm of breast (principal); Z80.3 Family history of malignant neoplasm of breast; R92.323 Mammographic fibroglandular density, bilateral breasts
CPT/HCPCS: 77063; 77067

== ENCOUNTER → 2023-07-30 09:21 | Outpatient (CLI) | payer OTHER, SELFPAY ==
--- NOTE | 2023-07-30 09:22 | DI.MG.S_ITS ---
UNILATERAL RIGHT DIGITAL DIAGNOSTIC MAMMOGRAM 3D/2D WITH ADDITIONAL VIEWS: 07/30/2023 CLINICAL: Additional evaluation requested from prior study. Comparison is made to exams dated: 07/08/2023 mammogram, 07/06/2022 mammogram, and 06/26/2021 mammogram - [facility]. There are scattered areas of fibroglandular density in the right breast (category b / 25%-50% glandular tissue). There is a 0.6 cm oval mass with a circumscribed margin in the right breast at 6 o'clock middle depth. This corresponds to finding seen on recent screening mammogram. No other significant masses or calcifications are seen in the breast. IMPRESSION: INCOMPLETE: NEEDS ADDITIONAL IMAGING EVALUATION Right breast 0.6 cm oval mass at 6 o'clock middle. An ultrasound is recommended for further evaluation and is scheduled to immediately follow this examination. Based on the Tyrer Cuzick model (a risk assessment model) the patient's lifetime risk is 7.9% and her 10 year risk is 3.7%. According to the ACR, ACS, and NCCN guidelines, an annual breast MRI exam along with mammogram is recommended if the patient's lifetime risk is 20% or greater. This exam was interpreted at Station ID: [id number]. NOTE: For mammograms, a report in lay terms will be sent to the patient. Approximately 15% of breast malignancies will not be visualized mammographically. In the management of a palpable breast mass, a negative mammogram must not discourage biopsy of a clinically suspicious lesion. Electronically Signed By: Lisset Marques M.D., PH.D eb/:07/30/2023 12:15:10 ACR BI-RADS Category 0: Incomplete 3340F
--- NOTE | 2023-07-30 09:23 | DI.US.S_ITS ---
LIMITED ULTRASOUND OF RIGHT BREAST: 07/30/2023 CLINICAL: Patient returns for short term follow-up of a probably benign mass in the right breast. Patient returns for additional imaging over a suspected mass in the right breast. Comparison is made to exams dated: 07/30/2023 mammogram, 07/08/2023 mammogram, 07/06/2022 mammogram, 06/26/2021 ultrasound, 06/26/2021 mammogram, and 04/12/2020 mammogram - [facility]. Real-time ultrasound of the right breast 6 o'clock region was performed. Sloan scale images of the real-time examination were reviewed. There is a benign 0.6 cm x 0.6 cm x 0.5 cm simple cyst in the right breast at 6 o'clock, 1 cm from the nipple. This correlates with mammography findings. IMPRESSION: BENIGN Right breast simple cyst at 0.6 cm t 6 o'clock is benign. No mammographic or targeted sonographic evidence of malignancy. A 1 year screening mammogram is recommended. Findings and recommendations were conveyed to the patient during today's evaluation. This exam was interpreted at Station ID: [id number]. Electronically Signed By: Lisset Marques M.D., PH.D eb/:07/30/2023 12:21:48 letter sent: Normal Exam Ultrasound BI-RADS: 2 Benign
== END ==
LOC: MAMMO 09:21
PROVIDERS: PCP Family Medicine; Referring Provider Family Medicine; Visit Provider Family Medicine
DX: N60.01 Solitary cyst of right breast; R92.321 Mammographic fibroglandular density, right breast; R92.8 Other abnormal and inconclusive findings on diagnostic imaging of breast
CPT/HCPCS: 76642; 77065; G0279

== ENCOUNTER → 2023-10-28 16:06 | Outpatient (CLI) | payer OTHER, SELFPAY | PROVIDERS: PCP Family Medicine; Referring Provider Family Medicine; Visit Provider Family Medicine | DX: D72.829 Elevated white blood cell count, unspecified (principal); I10 Essential (primary) hypertension; E11.9 Type 2 diabetes mellitus without complications | CPT/HCPCS: 36415; 83036 ==

== ENCOUNTER → 2024-03-02 16:55 | Outpatient (CLI) | payer OTHER, SELFPAY ==
[2024-03-02 17:55] LABS: Alanine Aminotransferase 17 IU/L (<35); Albumin 4.1 g/dL (3.5-5.0); Albumin Globulin Ratio 1.1 (1.0-2.8); BUN Creatinine Ratio 22.9 (6-22); Blood Urea Nitrogen 19 mg/dL (7-17); Carbon Dioxide 21 mmol/L (22-32); Chloride 106 mmol/L (98-107); Cholesterol 128 mg/dL (140-199); Estimated Glomerular Filt Rate > 60 mL/min (>60); Globulin 3.8 g/dL (1.7-4.1); HEMOLYSIS 43 (0-50); Potassium 4.5 mmol/L (3.4-5.1); Sodium 137 mmol/L (137-145); Total Protein 7.9 g/dL (6.3-8.2); Triglycerides 168 mg/dL (35-150)
[2024-03-02 17:56] LABS: Glucose 127 mg/dL (80-110)
[2024-03-02 17:57] LABS: Alkaline Phosphatase 83 U/L (38-126); Aspartate Aminotransferase 21 IU/L (14-36); Bilirubin Total 0.5 mg/dL (0.2-1.3); Calcium 10.2 mg/dL (8.4-10.2); HDL Cholesterol 67 mg/dL (40-60); LDL Cholesterol Calculated 27 mg/dL (<100)
[2024-03-02 18:29] LABS: TSH w/ Reflex to FT4 0.04 uIU/mL (0.47-4.68)
[2024-03-02 18:43] LABS: HIV 1 & 2 Ab/Ag 4th Gen Combo NEGATIVE (NEGATIVE); Hep C Virus Ab w/Reflex Quant NEGATIVE s/c (NEGATIVE)
[2024-03-02 19:52] LABS: Free T4, Direct Thyroxine 1.65 ng/dL (0.78-2.19)
== END ==
LOC: LAB 16:56
PROVIDERS: PCP Family Medicine; Referring Provider Family Medicine; Visit Provider Family Medicine
DX: E78.2 Mixed hyperlipidemia (principal); E11.29 Type 2 diabetes mellitus with other diabetic kidney complication; R80.9 Proteinuria, unspecified; E11.9 Type 2 diabetes mellitus without complications; I10 Essential (primary) hypertension; E03.9 Hypothyroidism, unspecified
CPT/HCPCS: 36415; 80053; 80061; 84439; 84443; 86803; 87389

== ENCOUNTER → 2024-03-03 17:13 | Outpatient (CLI) | payer OTHER, SELFPAY | LOC: LAB 17:13 | PROVIDERS: PCP Family Medicine; Referring Provider Family Medicine; Visit Provider Family Medicine | DX: E11.29 Type 2 diabetes mellitus with other diabetic kidney complication (principal); R80.9 Proteinuria, unspecified; Z79.4 Long term (current) use of insulin | CPT/HCPCS: 36415; 83036 ==

== ENCOUNTER → 2024-07-23 15:33 | Outpatient (CLI) | payer OTHER, SELFPAY ==
--- NOTE | 2024-07-23 15:33 | DI.MG.S_ITS ---
BILATERAL DIGITAL SCREENING MAMMOGRAM 3D/2D WITH CAD: 07/23/2024 CLINICAL: Routine screening. Family history of breast cancer. Comparison is made to exams dated: 07/08/2023 mammogram, 07/06/2022 mammogram, 05/30/2021 mammogram, and 06/26/2021 mammogram - [facility]. There are scattered areas of fibroglandular density (category b / 25%-50% glandular tissue). Current study was also evaluated with a Computer Aided Detection (CAD) system. There is a benign cyst in the right breast. No significant masses, calcifications, or other findings are seen in either breast. There has been no significant interval change. IMPRESSION: BENIGN There is no mammographic evidence of malignancy. A 1 year screening mammogram is recommended. Based on the Tyrer Cuzick model (a risk assessment model) the patient's lifetime risk is 7.6% and her 10 year risk is 3.7%. According to the ACR, ACS, and NCCN guidelines, an annual breast MRI exam along with mammogram is recommended if the patient's lifetime risk is 20% or greater. This exam was interpreted at Station ID: [id number]. NOTE: For mammograms, a report in lay terms will be sent to the patient. Approximately 15% of breast malignancies will not be visualized mammographically. In the management of a palpable breast mass, a negative mammogram must not discourage biopsy of a clinically suspicious lesion. Electronically Signed By: Deshawn gordon/leesa:07/25/2024 14:30:51 letter sent: Normal Exam ACR BI-RADS Category 2: Benign
== END ==
PROVIDERS: PCP Family Medicine; Referring Provider Family Medicine; Visit Provider Family Medicine
DX: Z12.31 Encounter for screening mammogram for malignant neoplasm of breast (principal); Z80.3 Family history of malignant neoplasm of breast
CPT/HCPCS: 77063; 77067

== ENCOUNTER → 2024-08-31 16:49 | Outpatient (CLI) | payer OTHER, SELFPAY ==
[2024-08-31 17:47] LABS: Hemoglobin A1C% w Est Avg Glu 6.1 % (4.0-6.0)
[2024-08-31 18:01] LABS: Free T3, Triiodothyronine Free 3.09 pg/mL (2.77-5.27); Free T4, Direct Thyroxine 1.35 ng/dL (0.78-2.19)
[2024-08-31 18:14] LABS: Thyroid Stimulating Hormone 0.073 uIU/mL (0.47-4.68)
== END ==
PROVIDERS: PCP Family Medicine; Referring Provider Family Medicine; Visit Provider Family Medicine
DX: E11.29 Type 2 diabetes mellitus with other diabetic kidney complication (principal); R80.9 Proteinuria, unspecified; Z79.4 Long term (current) use of insulin; E03.9 Hypothyroidism, unspecified
CPT/HCPCS: 36415; 83036; 84439; 84443; 84481

== ENCOUNTER → 2025-01-04 15:59 | Outpatient (CLI) | payer OTHER, SELFPAY ==
[2025-01-04 18:32] LABS: Culture Indicated Urine Specimen Cultured
[2025-01-04 19:07] LABS: TSH w/ Reflex to FT4 0.23 uIU/mL (0.47-4.68)
[2025-01-04 19:43] LABS: Free T4, Direct Thyroxine 1.77 ng/dL (0.78-2.19)
== END ==
PROVIDERS: PCP Family Medicine; Referring Provider Family Medicine; Visit Provider Family Medicine
DX: E03.9 Hypothyroidism, unspecified (principal); R31.9 Hematuria, unspecified
CPT/HCPCS: 36415; 81015; 84439; 84443; 87077; 87086; 87186

== ENCOUNTER → 2025-03-08 16:19 | Outpatient (CLI) | payer OTHER, SELFPAY ==
[2025-03-08 18:01] LABS: Hemoglobin A1C% w Est Avg Glu 6.0 % (4.0-6.0)
[2025-03-08 18:19] LABS: Alanine Aminotransferase 17 IU/L (<35); Albumin 4.4 g/dL (3.5-5.0); Albumin Globulin Ratio 1.3 (1.0-2.8); Alkaline Phosphatase 104 U/L (38-126); Blood Urea Nitrogen 14 mg/dL (7-17); Calcium 10.4 mg/dL (8.4-10.2); Carbon Dioxide 23 mmol/L (22-32); Chloride 109 mmol/L (98-107); Cholesterol 145 mg/dL (140-199); Estimated Glomerular Filt Rate > 60 mL/min (>60); Globulin 3.5 g/dL (1.7-4.1); Glucose 51 mg/dL (70-99); HDL Cholesterol 78 mg/dL (40-60); HEMOLYSIS < 15 (0-50); Potassium 4.4 mmol/L (3.4-5.1); Sodium 142 mmol/L (137-145); Total Protein 7.9 g/dL (6.3-8.2); Triglycerides 170 mg/dL (35-150)
[2025-03-08 20:33] LABS: TSH w/ Reflex to FT4 0.05 uIU/mL (0.47-4.68)
[2025-03-08 20:58] LABS: Free T4, Direct Thyroxine 1.69 ng/dL (0.78-2.19)
== END ==
PROVIDERS: PCP Family Medicine; Referring Provider Family Medicine; Visit Provider Family Medicine
DX: E11.29 Type 2 diabetes mellitus with other diabetic kidney complication (principal); R80.9 Proteinuria, unspecified; Z79.4 Long term (current) use of insulin; E78.2 Mixed hyperlipidemia
CPT/HCPCS: 36415; 80053; 80061; 83036; 84439; 84443